=== PATIENT | male | born 1980 | race African-American/Black ===

== ENCOUNTER 2022-01-24 12:22 | Emergency (ER) | payer SELFPAY ==
--- OUTSIDE RECORDS SUMMARY | 2022-01-24 12:27 | XMS REPORT | Continuity of Care Document ---
:1980 Author Organization [facility] t Address [address] [place] [address] Care Team Providers Name Role Phone Pcp, Patient Does Not Have A Primary Care Physician [id number] ROSSANA IBARRA Attending Clinician Unavailable Cyndi Bey Attending Clinician Problems Condition Condition Condition Status Onset Resolution Last Treating Co mments Source Name Details Category Date Date Treatment Clinician Date No known No known Disease Unive rs active active ity of problems problems [facility] [place] [place] Allergies, Adverse Reactions, Alerts Allergy Allergy Status Severity Reaction(s) Onset Inactive Treating Comm ents Source Name Type Date Date Clinician NO KNOWN Drug Active Univers ALLERGIE Class ity of S [facility] [place] [place] Social History Social Habit Start Date Stop Date Quantity Comments Source Exposure to 2022-01-12 2022-01-22 Not sure [facility] SARS-CoV-2 (event) 00:00:00 18:57:00 Medica l Branch Sex Assigned At [birth year] [facility] 00:00:00 00:00:00 Medical Branch Smoking Status Start Date Stop Date Source Tobacco smoking consumption [facility] Medical unknown Branch Medications Ordered Filled Start Stop Current Ordering Indication Dosage Frequency Signature Comments Components Source Medication Medication Date Date Medication? Clinician (SIG) Name Name NaCl 0.9% 2021- No 1000mL at 999 Uni vers (NS) bolus 8 08-02 mL/hr, ity of infusion 00:30: 01:12 1,000 mL, Fernando as 1,000 mL 00 :00 IV Medical Infusion, Branch ONCE, 1 dose, On 01/22/22 at 1930, INDERJIT iopamidol 2021- No [id number] 70mL 70 mL, Un tony (ISOVUE 01-23 Intravenou ity o f 370-500 mL) 00:08: 00:15 s, ONCE, 1 [place] injection 00 :00 dose, On Medica l 70 mL [facility] 01/22/22 Branch at 1915, Routine proMETHazin No 25mg 25 mg, IV Univers e 01-22 Piggyback, ity of (PHENERGAN) 23:30: 23:30 [place] 00 :00 dose, On Medical NaCl 0.9% Sat01/22/22 Bran ch (NS) 50 mL at 1830, IV INDERJIT piggyback ondansetron No 4mg 4 mg, Slow Univers (ZOFRAN 01-22 IV Push, ity of (PF)) 23:00: 23:08 ONCE, 1 [place] injection 4 00 :00 dose, On Medi lupillo mg [facility] 01/22/22 Branch at 1800, INDERJIT ondansetron Yes [id number] 4mg Take 1 U nivers (ZOFRAN) 4 01-22 tablet by ity of mg tablet 00:00: mouth [place] 00 every 8 Medical (eight) Branch hours. Vital Signs Vital Name Observation Time Observation Value Comments Source Systolic blood 2022-01-22 22:40:00 163 mm[Hg] Univer sity of pressure [facility] [place] [place] Diastolic blood 2022-01-22 22:40:00 98 mm[facility]Hg[facility] 2022-01-22 22:40:00 61 /min [facility] Body temperature 2022-01-22 22:40:00 37.39 Sima [facility] Respiratory rate 2022-01-22 22:40:00 16 /min [facility] Body height 2022-01-22 22:40:00 175.3 cm [facility] Body weight 2022-01-22 22:40:00 99.791 kg [facility] BMI 2022-01-22 22:40:00 32.49 kg/m2 [facility] Oxygen saturation in 2022-01-22 22:40:00 97 /min [facility] Arterial blood by [facility] Pulse oximetry Branch Procedures Procedure Date / Time Performing Clinician Source Performed CT ABDOMEN PELVIS W 2022-01-23 00:12:06 Cyndi Morales [facility] CONTRAST [facility] Branch LIPASE 2022-01-22 23:05:00 Cyndi Morales [facility] TROPONIN I 2022-01-22 23:05:00 Cyndi Morales [facility] COMP. METABOLIC PANEL 2022-01-22 23:05:00 Cyndi Morales [facility] ([id number]) [facility] CBC WITH DIFF 2022-01-22 23:05:[facility]22 [facility]:05[facility] (ID NOW RAPID 2022-01-22 23:05:00 Cyndi Morales [facility] TESTING) [facility] URINE DRUG (IMMUNOASSAY) 2022-01-22 23:05:00 [facility] S[facility] W/O REFLEX Encounters Start End Encounter Admission Attending Care Care Encounter Source Date/Time Date/Time Type Type Clinicians Facility Department ID 2022-01-22 2022-01-22 Emergency X AYE IBARRA ERT [id number] Univers 17:41:00 20:50:00 ROSSANA [facility] 2022-01-22 2022-01-22 Emergency Cyndi Morales [facility] [id number] Univers 17:41:00 20:50:00 Rossana Ibarra [id number] [facility] [id number] [facility] [id number] [place] [id number] Branch Results Test Description Test Time Test Comments Results Result Comments Source TROPONIN I 2022-01-23 01:20:30 Test Item Value Reference Range Interpretation Comme nts TROPONIN I (test code = 0.006 ng/mL See_Comment [Au tomated message] The [id number]) system which ge nerated this result tra nsmitted reference range : <=0.034. The reference r edinson was not used to int erpret this result as normal/abnormal . JACINTO (test code = JACINTO) Reference (Normal) Range (defined by the 99th percentile reference limit): <= 0.034 ng/mL Note: Cardiac troponin begins to rise 3-4 hours after the onset of ischemia. Repeat in 4-6 hours if the sample was drawn within 3-4 hours of the onset of the symptom and found normal. Diagnosis of myocardial injury is made with acute changes in cTn concentrations with at least one serial sample above the 99th percentile upper reference limit (URL), taken together with the patient's clinical presentation. Biotin has been reported to cause a negative bias, interpret results relative to patient's use of biotin. Lab Interpretation Normal (test code = 20625-0) [facility]. METABOLIC PANEL ([id number])2022-01-22 23:35:38 Test Item Value Reference Range Interpretation Comments NA (test code = 137 mmol/L 135-145 5213493549) K (test code = 5.1 mmol/L 3.5-5 H 0394191165) CL (test code = 99 mmol/L 98-108 5549398654) CO2 TOTAL (test code = 27 mmol/L 23-31 1930373804) AGAP (test code = 2-16 3151338361) BUN (test code = 10 mg/dL 7-23 4327827957) GLUCOSE (test code = 131 mg/dL 70-110 H 9174457249) CREATININE (test code = 0.78 mg/dL 0.6-1.25 5037966093) TOTAL BILI (test code = 1.0 mg/dL 0.1-1.9 0148970009) CALCIUM (test code = 9.9 mg/dL 8.6-10.6 8278990115) T PROTEIN (test code = 8.8 g/dL 6.3-8.2 H 7216484439) ALBUMIN (test code = 5.0 g/dL 3.5-5 4150262053) ALK PHOS (test code = 103 U/L 34-122 3927523555) ALTv (test code = 36 U/L 5-50 1742-6) AST(SGOT) (test code = 30 U/L 13-40 8076493414) eGFR (test code = mL/min/1.73m2 1180851023) JACINTO (test code = JACINTO) Association of Glomerular Filtration Rate (GFR) and Staging of Kidney Disease* + --+ --+ ------+| GFR (mL/min/1.73 m2) ?| With Kidney Damage ?| ?Without Kidney Damage+ --------+ --------+ +| ?>90 ?| ?Stage one ?| ? Normal ?+ ---+ ---+ -------+| ?60-89 ?| ?Stage two ?| ? Decreased GFR ? + --+ --+ ------+| ?30-59 ?| ?Stage three ?| ? Stage three ? + --+ --+ ------+| ?15-29 ?| ?Stage four ? | ? Stage four ?+ ---+ ---+ -------+| ?<15 (or dialysis) ? ?| ?Stage five ? | ? Stage five ?+ ---+ ---+ -------+ *Each stage assumes the associated GFR level has been in effect for at least three months. ?Stages 1 to 5, with or without kidney disease, indicate chronic kidney disease. Notes: Determination of stages one and two (with eGFR >59mL/min/1.73 m2) requires estimation of kidney damage for at least three months as defined by structural or functional abnormalities of the kidney, manifested by either:Pathological abnormalities or Markers of kidney damage (including abnormalities in the composition of the blood or urine or abnormalities in imaging tests). Lab Interpretation Abnormal (test code = 10918-2) [facility] 23:34:55 Test Item Value Reference Range Interpretation Comments LIPASE (test code = 2204559941) 119 U/L 0-220 Lab Interpretation (test code = Normal 16381-0) [facility] WITH [id number] 23:22:55 Test Item Value Reference Range Interpretation Comments WBC (test code = See_Comment H [Automated 6690-2) message] The sy stem which generated this result transmitted reference range : 4.20 - 10.70 10*3/?L. The reference range was not used to interpret this result as normal/abnormal . RBC (test code = See_Comment H [Automated 789-8) message] The sy stem which generated this result transmitted reference range : 4.26 - 5.52 10*6/?L. The reference range was not used to interpret this result as normal/abnormal . HGB (test code = 18.7 g/dL 12.2-16.4 H 718-7) HCT (test code = 52.3 % 38.4-49.3 H 4544-3) MCV (test code = 88.6 fL 81.7-95.6 787-2) MCH (test code = 31.7 pg 26.1-32.7 785-6) MCHC (test code = 35.8 g/dL 31.2-35 H 786-4) RDW-SD (test code = 40.0 fL 38.5-51.6 42844-2) RDW-CV (test code = 12.2 % 12.1-15.4 788-0) PLT (test code = See_Comment [Automated 777-3) message] The sy stem which generated this result transmitted reference range : 150 - 328 10*3/ ?L. The reference r edinson was not used to interpret this result as normal/abnormal . MPV (test code = 9.7 fL 9.8-13 L 68287-2) IPF % (test code = 4.5 % 1.2-10.7 Platelet count 0464183794) measured by fluorescence method. NRBC/100 WBC (test See_Comment [Automat ed code = 5582813674) message] The system which generated this result transmitted reference range : 0.0 - 10.0 /100 WBCs. The refer ence range was not u sed to interpret th is result as normal/abnormal . NRBC x10^3 (test code See_Comment [Auto mated = 3300069940) message] The s ystem which generated this result transmitted reference range : 10*3/?L. The reference range was not used to interpret this result as normal/abnormal . GRAN MAT (NEUT) % 70.1 % (test code = 770-8) IMM GRAN % (test code 0.40 % = 0963930258) LYMPH % (test code = 24.2 % 736-9) MONO % (test code = 5.1 % 5905-5) EOS % (test code = 0.0 % 713-8) BASO % (test code = 0.2 % 706-2) GRAN MAT x10^3(ANC) 7.97 10*3/uL 1.99-6.95 H (test code = 2640219313) IMM GRAN x10^3 (test 0.05 10*3/uL 0-0.06 code = 4444762083) LYMPH x10^3 (test code 2.75 10*3/uL 1.09-3.23 = 731-0) MONO x10^3 (test code 0.58 10*3/uL 0.36-1.02 = 742-7) EOS x10^3 (test code = 0.06-0.53 L 711-2) BASO x10^3 (test code 0.01-0.09 = 704-7) Lab Interpretation Abnormal (test code = 01526-6) [facility]"
[2022-01-24] MEDS ORDERED: NA CHLORIDE 0.9% 1,000 ML ONE (13:43)
[2022-01-24] MEDS ORDERED: ONDANSETRON 4 MG/2 ML VIAL ONE (13:43)
[2022-01-24 13:45] LABS: Absolute Lymphocytes (CBC) 1.8 K/uL (0.7-4.9); Hematocrit 53.6 % (39.6-49.0); Lymphocytes % 13.3 % (15.3-44.8); MCV 91.4 fL (80-100); MPV 8.1 fL (7.6-11.3); RBC Red Blood Cell Count 5.87 M/uL (4.33-5.43)
[2022-01-24 14:11] LABS: Albumin 3.9 g/dL (3.4-5.0); Bilirubin Total 0.5 mg/dL (0.2-1.0); Potassium 3.7 mmol/L (3.5-5.1); Protein, Total 7.9 g/dL (6.4-8.2)
[2022-01-24] MEDS ORDERED: METOCLOPRAMIDE 10 MG/2mL INJ ONE (14:29)
[2022-01-24] MEDS ORDERED: DIPHENHYDRAMINE 50 MG/ML VIAL ONE (14:30)
[2022-01-24] MEDS ORDERED: KETOROLAC 30 MG/ML INJ ONE (14:30)
--- NOTE | 2022-01-24 15:16 | RAD REPORT ---
EXAM DESCRIPTION: US - Abdomen Exam Limited - 01/24/2022 3:07 pm CLINICAL HISTORY: ABD PAIN COMPARISON: No comparisons FINDINGS: No gallstones, sludge or other abnormalities within the gallbladder lumen. There is no wal l thickening or pericholecystic fluid. No common duct stone or biliary tree dilatation identified. IMPRESSION: Normal gallbladder and biliary tree ultrasound.
--- NOTE | 2022-01-24 15:33 | RAD REPORT ---
EXAM DESCRIPTION: CT - Abdomen Pelvis W Contrast - 01/24/2022 3:15 pm CLINICAL HISTORY: abdominal pain, vomiting COMPARISON: No comparisons TECHNIQUE: Biphasic, helical CT imaging of the abdomen and pelvis was performed following 100 ml non -ionic IV contrast. Oral contrast was given. All CT scans are performed using dose optimization technique as appropriate and may include automated exposure control or mA/KV adjustment according to patient size. FINDINGS: No suspicious findings in the lung bases. The liver, spleen, and pancreas show no suspicious findings. Gallbladder and biliary tree are also wi thout suspicious finding. Symmetric renal function is seen with no hydronephrosis or suspicious renal mass. No pyelonephritis o r acute parenchymal process. No bladder abnormalities. No adrenal abnormalities. No dilated bowel loops or bowel wall thickening. Appendix is normal. Rare sigmoid diverticulum seen. No free air, free fluid or inflammatory stranding. No hernia, mass or bulky lymphadenopathy. No suspicious bony findings. IMPRESSION: Contrast enhanced CT abdomen and pelvis showing no significant or suspicious finding.
[2022-01-24 16:04] LABS: Urine Blood Trace-intact (Negative); Urine Glucose Negative (Negative); Urine Protein Trace (Negative); Urine Specific Gravity >=1.030 (1.005-1.030)
--- NOTE | 2022-01-24 17:59 | ER ---
Nurse's Notes [facility] Name: Ced Verdugo Jr Age: 41 yrs Sex: Male : 1980 Arrival Date: 01/24/2022 Time: 12:25 Bed 13 Private MD: Diagnosis: Abdominal pain, Generalized Presentation: 01/24 12:49 Chief complaint: Patient states: i am nauseated and my stomach is hurting real bad. tw2 started Saturday night or Saturday morning. cant eat. it comes up. i dont know if i have food poisoning or what. my stomach hurts really bad. it hurts sugar in the center. i went to [place] Saturday and they gave me zofran and it didn't work. Coronavirus screen: nausea, Client presents with at least one sign or symptom that may indicate coronavirus-19. Standard/surgical mask placed on the client. Provider contacted for isolation considerations. Ebola Screen: Patient denies travel to an Ebola-affected area in the 21 days before illness onset. Initial Sepsis Screen: Does the patient meet any 2 criteria? No. Patient's initial sepsis screen is negative. Does the patient have a suspected source of infection? No. Patient's initial sepsis screen is negative. Risk Assessment: Do you want to hurt yourself or someone else? Patient reports no desire to harm self or others. Onset of symptoms was January 24, 2022. 12:49 Method Of Arrival: Ambulatory tw2 12:49 Acuity: EDWARD 3 tw2 Triage Assessment: 12:53 General: Appears in no apparent distress. uncomfortable, Behavior is calm, cooperative, tw2 appropriate for age. Pain: Complains of pain in abdomen. GI: Reports lower abdominal pain, upper abdominal pain, diarrhea, nausea, vomiting. Historical: - Allergies: 12:51 No Known Allergies; tw2 - Home Meds: 12:51 None [Active]; tw2 - PMHx: 12:51 None; tw2 - PSHx: 12:51 None; tw2 - Immunization history:: Client reports receiving the 2nd dose of the Covid vaccine. - Social history:: Smoking status: Patient reports the use of cigarette tobacco products, 10 cigarettes day. Screenin:23 Abuse screen: Denies threats or abuse. Nutritional screening: No deficits noted. kr3 Tuberculosis screening: No symptoms or risk factors identified. Fall Risk IV access (20 points). [place] Fall Scale indicates No Risk (0-24 pts). Assessment: 13:05 Reassessment: No changes from previously documented assessment. Patient is alert, kr3 oriented x 3, equal unlabored respirations, skin warm/dry/pink. 14:05 Reassessment: No changes from previously documented assessment. Patient and/or family kr3 updated on plan of care and expected duration. Pain level reassessed. Patient is alert, oriented x 3, equal unlabored respirations, skin warm/dry/pink. 15:00 Reassessment: No changes from previously documented assessment. Patient and/or family kr3 updated on plan of care and expected duration. Pain level reassessed. 16:00 Reassessment: No changes from previously documented assessment. Patient and/or family kr3 updated on plan of care and expected duration. Pain level reassessed. 17:00 Reassessment: No changes from previously documented assessment. Patient and/or family kr3 updated on plan of care and expected duration. Pain level reassessed. Patient is alert, oriented x 3, equal unlabored respirations, skin warm/dry/pink. 18:24 GI: Bowel sounds present X 4 quads. Abd is soft and non tender X 4 quads. kr3 Vital Signs: 12:49 BP 160 / 99; Pulse 54; Resp 17; Temp 98.9(TE); Pulse Ox 99% on R/A; Weight 99.79 kg tw2 (R); Height 5 ft. 8 in. (172.72 cm) (R); Pain 10/10; 14:10 BP 139 / 83; Pulse 68; Resp 16; Pulse Ox 98% on R/A; kr3 15:15 BP 148 / 86; Pulse 59; Resp 16; Pulse Ox 98% on R/A; kr3 16:15 BP 125 / 62; Pulse 53; Resp 16; Pulse Ox 96% on R/A; kr3 17:15 BP 142 / 73; Pulse 59; Resp 16; Pulse Ox 97% on R/A; kr3 18:18 BP 157 / 93; Pulse 55; Resp 16; Pulse Ox 98% on R/A; kr3 12:49 Body Mass Index 33.45 (99.79 kg, 172.72 cm) tw2 ED Course: 12:25 Patient arrived in ED. rg4 12:51 Triage completed. tw2 12:52 Arm band placed on. tw2 12:53 [facility] England [facility] jmm 12:53 Andrea Haywood MD is Attending Physician. jmm 13:05 Inserted saline lock: 22 gauge in right antecubital area, using aseptic technique. kr3 Blood collected. 13:11 Anahi Alfnoso, RN is Primary Nurse. kr3 15:09 US Abdomen Limited In Process Unspecified. EDMS 15:17 CT Abd/Pelvis - IV Contrast Only In Process Unspecified. EDMS 18:23 Bed in low position. Call light in reach. Side rails up X 1. kr3 18:23 No provider procedures requiring assistance completed. IV discontinued, intact, kr3 bleeding controlled, No redness/swelling at site. Administered Medications: 13:40 Drug: NS 0.9% 1000 ml Route: IV; Rate: 1 bolus; Site: right antecubital; kr3 18:26 Follow up: Response: No adverse reaction; IV Intake: 1000ml kr3 18:27 Follow up: IV Status: Completed infusion kr3 13:40 Drug: Zofran (Ondansetron) 4 mg Route: IVP; Site: right antecubital; kr3 14:52 Follow up: Response: No adverse reaction kr3 14:28 Drug: Reglan (metoCLOPramide) 10 mg Route: IVP; Site: right antecubital; ll1 18:26 Follow up: Response: No adverse reaction kr3 14:29 Drug: diphenhydrAMINE 12.5 mg Route: IVP; Site: right antecubital; ll1 18:25 Follow up: Response: No adverse reaction kr3 14:30 Drug: Ketorolac 30 mg Route: IVP; Site: right antecubital; ll1 18:25 Follow up: Response: No adverse reaction kr3 Medication: 18:24 VIS not applicable for this client. kr3 Intake: 18:26 IV: 1000ml; Total: 1000ml. kr3 Outcome: 17:59 Discharge ordered by . jmm 18:23 Discharged to home ambulatory. kr3 18:23 Condition: stable 18:23 Discharge instructions given to patient, Instructed on discharge instructions, follow up and referral plans. medication usage, Demonstrated understanding of instructions, follow-up care, medications, Prescriptions given X 3. 18:28 Patient left the ED. kr3 Signatures: Dispatcher [employer] EDMS Anjum England PA PA jmm Wise, Tara RN RN tw2 Key Cancino rg4 Clair Hernández, RN RN ll1 Anahi Alfonso RN RN kr3 Corrections: (The following items were deleted from the chart) 12:52 12:51 Social history: Smoking status: Patient reports use of chewing tobacco. tw tw 12:53 12:49 Chief complaint: Patient states: i am nauseated and my stomach is hurting real tw2 bad. started Saturday night or Saturday morning. cant eat. it comes up. i dont know if i have food poisoning or what. my stomach hurts really bad. it hurts sugar in the center tw2 15:57 14:06 General: kr3 kr3
--- NOTE | 2022-01-24 17:59 | EDPHYS ---
Physician Documentation [facility] Name: Ced Verdugo Jr Age: 41 yrs Sex: Male : 1980 Arrival Date: 01/24/2022 Time: 12:25 Bed 13 Private MD: DEIDRA Physician Andrea Haywood HPI: 01/24 13:07 This 41 yrs old Black Male presents to ER via Ambulatory with complaints of Abdominal jmm Pain, Nausea/Vomiting. 13:07 The patient presents with abdominal pain. Onset: The symptoms/episode began/occurred jmm gradually, 3 day(s) ago. The symptoms do not radiate. Associated signs and symptoms: Pertinent positives: nausea and vomiting, diarrhea. The symptoms are described as achy. Modifying factors: The symptoms are alleviated by nothing, the symptoms are aggravated by nothing. The patient has not experienced similar symptoms in the past. Historical: - Allergies: 12:51 No Known Allergies; tw2 - Home Meds: 12:51 None [Active]; tw2 - PMHx: 12:51 None; tw2 - PSHx: 12:51 None; tw2 - Immunization history:: Client reports receiving the 2nd dose of the Covid vaccine. - Social history:: Smoking status: Patient reports the use of cigarette tobacco products, 10 cigarettes day. ROS: 13:07 Constitutional: Negative for fever, chills, and weight loss, Cardiovascular: Negative jmm for chest pain, palpitations, and edema, Respiratory: Negative for shortness of breath, cough, wheezing, and pleuritic chest pain. 13:07 Abdomen/GI: Positive for abdominal pain, nausea and vomiting. 13:07 All other systems are negative. Exam: 13:07 Constitutional: This is a well developed, well nourished patient who is awake, alert, jmm and in no acute distress. Head/Face: atraumatic. Eyes: EOMI, no conjunctival erythema appreciated ENT: Moist Mucus Membranes Neck: Trachea midline, Supple Chest/axilla: Normal chest wall appearance and motion. Cardiovascular: Regular rate and rhythm. No edema appreciated Respiratory: Normal respirations, no respiratory distress appreciated 13:07 Skin: General appearance color normal MS/ Extremity: Moves all extremities, no obvious deformities appreciated, no edema noted to the lower extremities Neuro: Awake and alert Psych: Behavior is normal, Mood is normal, Patient is cooperative and pleasant 13:07 Abdomen/GI: Inspection: abdomen appears normal, Bowel sounds: normal, Palpation: soft, mild abdominal tenderness, in the epigastric area, right upper quadrant and left upper quadrant. Vital Signs: 12:49 BP 160 / 99; Pulse 54; Resp 17; Temp 98.9(TE); Pulse Ox 99% on R/A; Weight 99.79 kg tw2 (R); Height 5 ft. 8 in. (172.72 cm) (R); Pain 10/10; 14:10 BP 139 / 83; Pulse 68; Resp 16; Pulse Ox 98% on R/A; kr3 15:15 BP 148 / 86; Pulse 59; Resp 16; Pulse Ox 98% on R/A; kr3 16:15 BP 125 / 62; Pulse 53; Resp 16; Pulse Ox 96% on R/A; kr3 17:15 BP 142 / 73; Pulse 59; Resp 16; Pulse Ox 97% on R/A; kr3 18:18 BP 157 / 93; Pulse 55; Resp 16; Pulse Ox 98% on R/A; kr3 12:49 Body Mass Index 33.45 (99.79 kg, 172.72 cm) tw2 MDM: 13:07 Patient medically screened. [email or web address] 17:58 Data reviewed: vital signs, nurses notes. Counseling: I had a detailed discussion with shey the patient and/or guardian regarding: the historical points, exam findings, and any diagnostic results supporting the discharge/admit diagnosis, lab results, radiology results, the need for outpatient follow up, to return to the emergency department if symptoms worsen or persist or if there are any questions or concerns that arise at home. ED course: Imaging studies negative. Patient advised follow-up PCP and otherwise given strict return precautions patient understood and agrees plan of care.. 01/24 13:14 Order name: CBC with Diff; Complete Time: 14:12 [facility] 01/24 13:14 Order name: CMP; Complete Time: 14:12 [facility] 01/24 13:14 Order name: Lipase; Complete Time: 14:12 [facility] 01/24 14:14 Order name: CT Abd/Pelvis - IV Contrast Only; Complete Time: 15:36 [facility] 01/24 14:14 Order name: US Abdomen Limited; Complete Time: 15:36 [facility] 01/24 16:05 Order name: Urine Dipstick-Ancillary; Complete Time: 16:11 [facility] 01/24 13:14 Order name: IV Saline Lock; Complete Time: 13:32 [facility] 01/24 13:14 Order name: Labs collected and sent; Complete Time: 13:32 [facility] Administered Medications: 13:40 Drug: NS 0.9% 1000 ml Route: IV; Rate: 1 bolus; Site: right antecubital; kr3 18:26 Follow up: Response: No adverse reaction; IV Intake: 1000ml kr3 18:27 Follow up: IV Status: Completed infusion kr3 13:40 Drug: Zofran (Ondansetron) 4 mg Route: IVP; Site: right antecubital; kr3 14:52 Follow up: Response: No adverse reaction kr3 14:28 Drug: Reglan (metoCLOPramide) 10 mg Route: IVP; Site: right antecubital; ll1 18:26 Follow up: Response: No adverse reaction kr3 14:29 Drug: diphenhydrAMINE 12.5 mg Route: IVP; Site: right antecubital; ll1 18:25 Follow up: Response: No adverse reaction kr3 14:30 Drug: Ketorolac 30 mg Route: IVP; Site: right antecubital; ll1 18:25 Follow up: Response: No adverse reaction kr3 Disposition Summary: 01/24/22 17:59 Discharge Ordered Location: Home [facility] Condition: Stable [facility] Diagnosis - Abdominal pain, Generalized jmm Followup: [facility] - With: Private Physician - When: 2 - 3 days - Reason: Recheck today's complaints, Continuance of care, Re-evaluation by your physician Discharge Instructions: - Discharge Summary Sheet [facility] - Abdominal Pain, Adult [facility] Forms: - Medication Reconciliation Form [facility] - Thank You Letter [facility] - Antibiotic Education [facility] - Prescription Opioid Use [facility] - Work release form kr3 Prescriptions: - promethazine 25 mg Oral Tablet - take 1 tablet by ORAL route every 6 hours As needed; 30 tablet; Refills: 0, [facility] Product Selection Permitted - dicyclomine 20 mg Oral Tablet - take 1 tablet by ORAL route 3 times per day; 30 tablet; Refills: 0, Product [facility] Selection Permitted - Carafate 1 gram Oral Tablet - take 1 tablet by ORAL route 4 times per day take on an empty stomach, beginning jmm on waking and last dose at bedtime; 100 tablet; Refills: 0, Product Selection Permitted Signatures: Dispatcher [employer] EDAndrea Goodman MD MD cha Mickail, Joel, PA PA jmm Wise, Tara RN RN tw2 Clair Hernándze RN RN ll1 Anahi Alfonso RN RN kr3 Corrections: (The following items were deleted from the chart) 12:52 12:51 Social history: Smoking status: Patient reports use of chewing tobacco. tw2 tw2
[2022-01-24 18:43] VITALS: TEMP 98.9
[2022-01-24 19:14] VITALS: BP 157/93; O2SAT 98
== END 2022-01-24 18:28 | disposition home or self-care (01) ==
LOC: ER 12:22
DX: R10.84 Generalized abdominal pain (principal); R11.2 Nausea with vomiting, unspecified; F17.210 Nicotine dependence, cigarettes, uncomplicated
CPT/HCPCS: 36415; 74177; 76705; 80053; 81003; 83690; 85025; J1200; J2405; J2765; J7030; Q9967